=== PATIENT | male | born 1970 | race American Indian/Alaskan Native ===

== ENCOUNTER 2019-05-25 09:42 | Outpatient (CLI) | payer OTHER ==
--- NOTE | 2019-05-25 10:49 | XRay Report ---
LEFT HAND HISTORY: Pain. COMPARISON: None. TECHNIQUE: 2 views of the left hand were obtained. FINDINGS: Bones: No fracture or dislocation. Joint spaces: Moderate osteoarthritis at the first MCP joint. The joint is narrowed and there are cys tic changes in the distal first metacarpal along with a prominent osteophyte. Mild osteoarthritis at the basal joint of the thumb. Soft tissues: No significant abnormality. Additional findings: None. IMPRESSION: 1. Osteoarthritis of the first MCP joint and to a lesser degree at the basal joint of the thumb. Signer Name: Bro Kirby MD Signed: 05/25/2019 10:44 AM Workstation Name: [id number]
--- NOTE | 2019-05-25 10:50 | XRay Report ---
LUMBAR SPINE 3 VIEWS INDICATION / CLINICAL INFORMATION: BACK PAIN COMPARISON: None available. FINDINGS: BONES / JOINT(S): Mild degenerative disc disease greatest at L3-L4. No significant arthritis. SOFT TISSUES: Mild atherosclerotic calcification of the aorta. ADDITIONAL FINDINGS: None. Signer Name: Jay Enciso MD Signed: 05/25/2019 10:46 AM Workstation Name: [id number]
--- NOTE | 2019-05-25 11:32 | XRay Report ---
XR hand 2V RT INDICATION / CLINICAL INFORMATION: RIGHT HAND PAIN. COMPARISON: None available. FINDINGS: BONES/JOINT(S): No acute fracture or subluxation. Mild DJD throughout the interphalangeal joints, bozena mb CMC joint, and thumb MCP joint with mild ulnar subluxation at the thumb MCP joint. No focal bone e rosions or focal osteopenia to suggest inflammatory arthropathy. SOFT TISSUES: No significant abnormality. ADDITIONAL FINDINGS: None. Signer Name: Alfred Hart MD Signed: 05/25/2019 11:28 AM Workstation Name: [email or web address]
--- NOTE | 2019-05-25 11:35 | XRay Report ---
BILATERAL HIPS WITH PELVIS, 3 VIEWS INDICATION: BILATERAL HIP PAIN. COMPARISON: None. IMPRESSION: Normal bone mineralization. No pelvic fracture or diastasis. Severe osteoarthritic richter es are identified at the right hip. There is near complete loss of superior joint space, articular mcnulty rface sclerosis and subchondral cyst formation. Focal area of osteonecrosis in the superior right fem oral head is difficult to exclude. Mild osteoarthritic changes are identified at the left hip. No fr acture or bone lesion. BILATERAL KNEES 2 VIEWS INDICATION: Bilateral knee pain. COMPARISON: None. IMPRESSION: Normal bone mineralization. Minimal medial compartment joint space narrowing, minimal ti bial spine spurring and minimal retropatellar spurring are identified in both knees. No fracture, tamir ne lesion or significant joint effusion is appreciated. Signer Name: Rashaad Ahmadi Jr, MD Signed: 05/25/2019 11:31 AM Workstation Name: [id number]
== END 2019-05-25 09:43 | disposition home or self-care (01) ==
LOC: XRAY 09:42
PROVIDERS: ATTEND Internal Medicine
DX: M16.12 Unilateral primary osteoarthritis, left hip (principal); M19.041 Primary osteoarthritis, right hand; M77.8 Other enthesopathies, not elsewhere classified; M87.851 Other osteonecrosis, right femur
CPT/HCPCS: 72100; 73521